=== PATIENT | male | born 1965 | race Caucasian/White ===

== ENCOUNTER 2025-05-12 02:26 | Emergency (ER) | payer MEDICARE, MEDICAID ==
--- NOTE | 2025-05-12 02:37 | Physician Documentation ---
History of Present Illness ~ Chief Complaint: Respiratory Arrest Stated Complaint: UNRESPONSIVE Time Seen by MD: 02:37 HPI 59 yo M presenting with respiratory failure, AMS Unable to obtain any history from the patient due to his clinical condition Per EMS, the patient comes from [facility]. He reportedly had a change in status where he became unresponsive and had agonal breathing. EMS was told that they did not have any medications to make him comfortable and so they sent him to the emergency department. He is do not intubate, but okay for cardiac shocks. EMS reports that he was hypoxic and had agonal breathing. Review of Systems Unable to obtain complete ROS: altered mental status Physical Exam Vital Signs: Heart Rate: 78, Respiratory Rate: 12, BP: 121/63, Pulse Oximetry: 100 Physical Exam General: This is a ill-appearing unresponsive middle-aged man with agonal breathing HEENT: Atraumatic, oropharynx is dry, he seems to be having trouble clearing his secretions Heart: Regular rate and rhythm, extremities are cool Lungs: Agonal breathing with a very shallow respiration and slow rate, hypoxic on room air Neuro: The patient is somnolent, does not respond to voice Progress Results/Orders Results/Orders Orders - FIDENCIO GONZALEZ MD Page Hospitalist (05/12/25 03:23) CMP (05/12/25 03:47) Cbc/Diff (05/12/25 03:47) Completed Orders - FIDENCIO GONZALEZ MD Morphine 4mg/Ml Inj. (Morphine Inj.) (05/12/25 02:51) Ondansetron Inj. (Zofran 4mg/2ml Vial) (05/12/25 02:51) Medications Received in ER Medications (Trade) Dose Ordered Sig/Cm Route PRN Reason Start Time Stop Time Status Last Admin Dose Admin (morphine inj.) 4 mg ONCE STAT IV 05/12/25 02:51 05/12/25 02:53 DC 05/12/25 02:58 4 MG (Zofran 4mg/2ml vial) 4 mg ONCE STAT IV 05/12/25 02:51 05/12/25 02:53 DC 05/12/25 02:58 4 MG Vital Signs 05/12/25 05/12/25 05/12/25 02:31 02:38 03:32 Pulse 78 79 Resp 12 12 8 B/P (MAP) 121/63 121/63 (82) Pulse Ox 100 98 O2 Flow Rate 8.0 Laboratory Tests Test 05/12/25 03:21 CBC Comment Chemistry Comments Re-Evaluation Re-Evaluation : Progress Phone call: I called and spoke to the person listed on the patient's paperwork. He tells me he is the patient's best friend. He tells me that they have had multiple conversations in the past about his condition and he states the patient clearly stated he does not want to suffer or have a prolonged . He does not want aggressive treatments or interventions. He tells me that the patient does have a sister in [place]. Phone call: I spoke to the patient's sister, Tg. I informed her about his current condition. I had a long discussion with her, after which she stated that she does not think he would want to suffer, does not think he would want aggressive treatment. She does think that he would want to be placed on comfort measures at this time. Called to bedside. The patient has stopped breathing. He no longer has a pulse or heartbeat. Time of 0500 Phone call: I spoke again to the patient's sister Tg. I informed her of his . Consults/PCP Consults/PCP : Additional Comment Consult: I spoke to the internal medicine service, for admission in the hospital Medical Decision Making Additional information obtaine: family Findings Spoke with the patient's sister Differential Dx:Considerations: Include Cardiogenic shock, Include Dysrhythmia, Include Electrolyte Disorder, Include Myocardial infaction, Include Pulmonary embolus, Include Respiratory failure Additional Comment The patient presents with altered mental status and agonal respirations. On my exam, he appears to be in the process. He has paperwork that clearly states he does not want to be intubated, which would be the only possible intervention for his current condition. The quickly contacted his friend and then sister, who both confirmed that he would not want aggressive treatment and feel that he would want comfort measures at this point. Other treatments were stopped except for oxygen for comfort, and he was given morphine and Zofran. He was admitted to the medicine service for further treatment on comfort measures only. While he was still here in the emergency department he . I contacted his sister as above. Departure Impression: Primary Impression: Additional Impressions: Altered mental status Hypoxic respiratory failure Referrals: NO PRIMARY CARE PROVIDER (PCP) Signature Scribe Signature: na Attestation: FIDENCIO Melgoza MD May 12, 2025 02:37
[2025-05-12] MEDS: ondansetron/PF 4mg/2ml inj IV STA (02:58)
[2025-05-12] MEDS: morphine 4 MG/ML inj SYRINge IV STA (02:58)
[2025-05-12 03:32] VITALS: BP 121/63; PULSE 79; RESP 8; O2SAT 98
--- NOTE | 2025-05-12 05:45 | HISTORY AND PHYSICAL-Residence ---
History & Physical Providers to CC Resident Creating Document: GERMÁN RAM SHABBIR, RES ~ History of Present Illness Reason for Admit\Complaint: unresponsive History of Present Illness A 59 years old male transferred from [facility] due to change in consciousness and unresponsive. ED physician stated that: 59 yo M presenting with respiratory failure, AMS Unable to obtain any history from the patient due to his clinical condition Per EMS, the patient comes from [facility]. He reportedly had a change in status where he became unresponsive and had agonal breathing. EMS was told that they did not have any medications to make him comfortable and so they sent him to the emergency department. He is do not intubate, but okay for cardiac shocks. EMS reports that he was hypoxic and had agonal breathing. ED physician explained the condition to the patient sister, friends and they decided the code status as comfort care. Past Medical History Past Medical History Lung cancer Type 2 diabetes Pneumonia Emphysema ROS ROS Unable to obtain ROS: Altered mental status Unable to obtain: altered mental status Exam Vitals: Vital Signs Date Time Temp Pulse Resp B/P (MAP) Pulse Ox O2 Delivery O2 Flow Rate FiO2 05/12/25 03:32 79 8 121/63 (82) 98 8.0 General: General: This is a ill-appearing unresponsive middle-aged man with agonal breathing HEENT: Atraumatic, oropharynx is dry, he seems to be having trouble clearing his secretions Heart: Regular rate and rhythm, extremities are cool Lungs: Agonal breathing with a very shallow respiration and slow rate, hypoxic Neuro: The patient is somnolent, does not respond to voice Advance Care Planning Advanced Care plannin - 30 Minutes Additional Plan 59 years old male admitted BIBA for respiratory distress, AMS from [facility] and patient is ill-appearing, unresponsive, poor GCS, Altered mental status Acute respiratory failure Unresponsive Imaging and laboratory work not done IV morphine was given for pain and comfort Physical exam: Agonal breathing, week bilateral radial pulse, skin is pale , extremities are cool, patient is somnolent and does not respond to commands ED physician explained the condition to the patient sister and friends and After shared decision making, the code status was changed from limited resuscitation to comfort care Code status: DNR with Comfort care The patient was 59 years old male who was brought in by EMS from [facility] due to respiratory distress and change in mental status. On arrival patient appeared ill and was unresponsive, poor GCS score. On examination pt exhibited agonal breathing, had a week bilateral radial pulse, pale skin and cool extremities. Patient was somnolent and did not respond to verbal or painful stimuli. Imaging and lab workup were not performed due to patient rapidly declining condition. IV morphine was administered for comfort and pain management. The ED physician discussed the patient condition and poor prognosis with his sister and friends. After shared decision making, the code status was changed from limited resuscitation to comfort care. Despite supportive measures, patient was at 5:00 a.m.. Patient sister was informed about . Cause of : Acute respiratory failure, AMS, cardiac arrest. Resident attestation The above note has been reviewed and supervised by a senior resident PGY2/PGY3 Patient was seen, examined and discussed with the attending physician Tana Ram MD Internal Medicine Resident, PGY 1 agree with care and plan Date of Service: May 12, 2025 Billing Provider: YAYO SIFUENTES MD, SUNIL KUMAR, RES May 12, 2025 05:45 YAYO SIFUENTES MD May 12, 2025 09:43
--- NOTE | 2025-05-12 06:30 | Death Certificate - Resident ---
Certificate Worksheet Date of Date of : May 12, 2025 Cause of / Time Intervals Cause of IMMEDIATE CAUSE: Cardiac arrest (Final Disease or *Time Between Onset and condition resulting in ) [Hours (H), Days (D),Week's (W),Month's (M ),Year's (Y)] A) cardiac arrest *Time: 5:00 a.m. B) acute respiratory failure *Time: 2:00 a.m. C) altered mental status *Time: 2:00 a.m. D) lung cancer *Time: Unknown E) *Time: Other Significant Conditions Other Significant Conditions Acute hypoxemic respiratory failure Altered level of consciousness Lung cancer License Number [id number] Physicians Mailing Address Hospitalist Mailing Address: [address] [place] [address], [id number] YUMIKO KENNEDY, RES May 12, 2025 06:30
--- NOTE | 2025-05-12 06:31 | DISCHARGE SUMMARY-Residence ---
Discharge Summary Providers to CC Resident Creating Document: GERMÁN GOVEA, RES ~ Discharge Summary Admission Diagnosis: RESPIRATORY FAILURE, AMS Hospital Course DATE OF ADMISSION: 05/12/25 DATE OF DISCHARGE:05/12/25 Discharge Diagnosis\Comment: Acute respiratory failure Unresponsive Altered mental status Operations\Procedures: None Consultants: None Complications: None Condition on DC: Discharge Summary: Course in the hospital: The patient was 59 years old male who was brought in by EMS from [facility] due to respiratory distress and change in mental status. On arrival patient appeared ill and was unresponsive, poor GCS score. On examination pt exhibited agonal breathing, had a week bilateral radial pulse, pale skin and cool extremities. Patient was somnolent and did not respond to verbal or painful stimuli. Imaging and lab workup were not performed due to p atient rapidly declining condition. IV morphine was administered for comfort and pain management. The ED physician discussed the patient condition and poor prognosis with his sister and friends. After shared decision making, the code status was changed from limited resuscitation to comfort care. Despite supportive measures, patient was at 5:00 a.m.. Patient sister was informed about . Cause of : Acute respiratory failure, AMS, cardiac arrest *Problems/Diagnosis: (1) Acute respiratory failure (2) Cardiac arrest (3) Altered mental status Total Time Spent on D/C: > 30 Minutes Date of Service: May 12, 2025 Billing Provider: YAYO SIFUENTES MD, SUNIL KUMAR, SUZE May 12, 2025 06:31
== END 2025-05-12 08:35 ==
LOC: ER 02:27
DX: J96.91 Respiratory failure, unspecified with hypoxia (principal); R41.82 Altered mental status, unspecified
CPT/HCPCS: 96374; 96375; 99285; A4620; J2270; J2405